=== PATIENT | male | born 1950 | race Caucasian/White ===

== ENCOUNTER 2016-03-23 06:26 | Day surgery (SDC) | payer MEDICARE ==
[2016-03-18 11:08] VITALS: BMI 41.0
[2016-03-23] MEDS ORDERED: SODIUM CHLORIDE 0.9% 1,000 ML IV ONE (07:04)
[2016-03-23] MEDS ORDERED: MIDAZOLAM 2 MG/2 ML VIAL IV ONE (07:51)
[2016-03-23] MEDS ORDERED: LIDOCAINE 2% INJ 20 MG/ML SQ ONE (07:55)
[2016-03-23] MEDS ORDERED: BIVALIRUDIN BOLUS 250 MG/50 ML IV ONE (07:59)
[2016-03-23] MEDS ORDERED: BIVALIRUDIN 250 MG in SODIUM CHLORIDE 0.9% 50 ML IV ONE (08:00)
[2016-03-23] MEDS ORDERED: NITROGLYCERIN 1000MCG/10ML SYRINGE INTRACORON ONE (08:12)
[2016-03-23] MEDS ORDERED: CLOPIDOGREL 75 MG TAB PO ONE (08:19)
[2016-03-23] MEDS ORDERED: IODIXANOL 320 MG/ML 100 ML INTRAARTER ONE (08:19)
[2016-03-23] MEDS ORDERED: NITROGLYCERIN SL TABS 0.4 MG TAB SUBLINGUAL PRN ×2 (08:27)
[2016-03-23] MEDS ORDERED: RX INFO: IV CONTRAST WAS GIVEN 1 EACH MISC MISCELLANE PRN (08:27)
[2016-03-23] MEDS ORDERED: ZOLPIDEM 5 MG TAB PO PRN (08:27)
[2016-03-23] MEDS ORDERED: MAG HYDROX/AL HYDROX/SIMETH 30 ML CUP PO PRN (08:27)
[2016-03-23] MEDS ORDERED: SODIUM CHLORIDE 0.9% 1,000 ML IV SCH (08:30)
[2016-03-23] MEDS: LISINOPRIL 20 MG TAB PO SCH (13:13)
[2016-03-23] MEDS: ASPIRIN 325 MG TAB PO SCH (13:13)
[2016-03-23] MEDS: ATENOLOL 25 MG TAB PO SCH (13:13)
[2016-03-23] MEDS: amLODIPine 5 MG TAB PO SCH (13:13)
--- NOTE | 2016-03-23 17:50 | PTCA ---
DATE OF SERVICE: 03/23/2016 PERFORMING PHYSICIAN: Lino Manzo M.D., social work associate. PROCEDURE PERFORMED: Successful stenting of the mid left circumflex using a 3.0 x 15 mm Xience CIRILO with good angiographic results. INDICATION: This is a pleasant 65-year-old gentleman who sees Dr. Gar as an outpatient who underwent a heart catheterization a few weeks ago for chest discomfort and an abnormal stress test and was found to have severe disease involving the RCA and left circumflex. The RCA was fixed at that time and he was brought today to undergo stenting of the left circumflex. APPROACH: Right common femoral artery. COMPLICATIONS: None. LEVEL OF SEDATION: Moderate. PROCEDURE DESCRIPTION: After obtaining informed consent, the patient was brought to the cardiac laboratory manager. The right common femoral artery was cannulated using micropuncture technique. Micropuncture wire passed easily, then I placed a 6 Telugu sheath in the right common femoral artery. Anticoagulation was initiated using Angiomax. After that I took an XB 3.5 guide and the left main was engaged. Left circumflex was wired using a Whisper wire. Subsequently I did PTCA ballooning using a 2.5 x 12 mm balloon which was inflated under 12 atmospheres for 20 seconds, and subsequently I deployed a 3.0 x 15 mm Xience CIRILO, where the stent was positioned under fluoroscopy guidance and it was deployed under 12 atmospheres for 20 seconds. The following angiogram showed good angiographic results. The procedure was completed without any complication. POST-PROCEDURE MANAGEMENT: 1. Dual antiplatelet therapy. 2. Risk factor modification. 3. Followup with the patient.
--- NOTE | 2016-03-23 18:00 | LTR ---
March 23, 2016 RE: Sánchez Smith Dear Dr. Qureshi: Mr. Sánchez Smith underwent successful stenting of the left circumflex with a good angiographic results. Thank you for allowing me to participate in his care. Sincerely, FIGUEROA VALLEJO MD
[2016-03-23] MEDS: ATORVASTATIN 80 MG TAB PO SCH ×2 (20:18→20:19)
[2016-03-24 06:40] LABS: Basophils % (A) 0 %; CH 31.9; CHCM 33.6; Eosinophils # (A) 0.4 k/uL (0-0.7); Eosinophils % (A) 6 %; HCT 39.4 % (39.0-53.0); HDW 2.31; HGB 12.9 gm/dL (13.0-17.5); Luc # (Auto) 0.16; Luc % (Auto) 3; Lymphocytes % (A) 16 %; MCH 31.3 pg (25.0-35.0); MCHC 32.8 g/dL (31.0-37.0); MCV 95.6 fL (80.0-100.0); Mean Platelet Volume 7.1; Monocytes # (A) 0.4 k/uL (0-1.0); Monocytes % (A) 7 %; Neutrophils # (A) 4.3 k/uL (1.3-7.7); Neutrophils % (A) 68 %; RBC 4.12 m/uL (4.30-5.90); RDW 12.2 % (11.5-15.5); WBC 6.3 k/uL (3.8-10.6); WBC (Perox) 6.65
[2016-03-24 06:54] LABS: Potassium 4.2 mmol/L (3.5-5.1)
[2016-03-24] MEDS ORDERED: PANTOPRAZOLE 40 MG TABLET PO SCH (07:30)
[2016-03-24 07:34] VITALS: BP 135/76; PULSE 59; RESP 17; TEMP 99
[2016-03-24] MEDS ORDERED: CLOPIDOGREL 75 MG TAB PO SCH (09:00)
[2016-03-24] MEDS: ATORVASTATIN 80 MG TAB PO SCH (09:31)
[2016-03-24] MEDS: ATENOLOL 25 MG TAB PO SCH (09:31)
[2016-03-24] MEDS: ASPIRIN 325 MG TAB PO SCH (09:31)
[2016-03-24] MEDS: amLODIPine 5 MG TAB PO SCH (09:31)
[2016-03-24] MEDS: LISINOPRIL 20 MG TAB PO SCH (09:31)
[2016-03-24] MEDS ORDERED: MULTIVITAMINS, THERA 1 EACH TAB PO SCH (12:00)
--- NOTE | 2016-03-24 22:30 | DS ---
DATE OF ADMISSION: 03/23/2016 DATE OF DISCHARGE: 03/24/2016 BRIEF HISTORY: This is a pleasant 65-year-old gentleman who sees Dr. Gar as an outpatient who was admitted to the hospital yesterday and underwent successful stenting of the mid left circumflex using the Xience CIRILO with a good angiographic results. On followup with the patient today, he is doing good and he denies having any chest pain or discomfort or difficulty in breathing. The right groin seems to be soft and nontender and without any bruises. The patient is going to be discharged home on dual antiplatelet therapy and he will follow up with Dr. Gar next week in the office.
== END 2016-03-24 10:33 | disposition home or self-care (01) ==
LOC: CATHCVL 06:26 → 6SEL 08:18 → CATHCVL 03-24 10:33
PROVIDERS: ATTEND Internal Medicine Interventional Cardiology
DX: I25.10 Atherosclerotic heart disease of native coronary artery without angina pectoris (principal); Z95.5 Presence of coronary angioplasty implant and graft; I12.9 Hypertensive chronic kidney disease with stage 1 through stage 4 chronic kidney disease, or unspecified chronic kidney disease; N18.9 Chronic kidney disease, unspecified; I25.2 Old myocardial infarction; E78.00 Pure hypercholesterolemia, unspecified; E78.5 Hyperlipidemia, unspecified; Z79.02 Long term (current) use of antithrombotics/antiplatelets; Z79.82 Long term (current) use of aspirin; Z79.899 Other long term (current) drug therapy; Z87.891 Personal history of nicotine dependence
CPT/HCPCS: 80048; 85025; C9600; C1769 ×3; C1725; C1887; C1894 ×2; C1874; J2001; J2250; Q9967; J0583

== ENCOUNTER 2016-09-27 06:55 | Day surgery (SDC) | payer MEDICARE ==
[~2016-09-27 06:55] MED LIST: ALPRAZolam 0.25 MG TAB PO PRN; ASPIRIN 325 MG TAB PO ONE; SODIUM CHLORIDE 0.9% 1,000 ML in EMPTY BAG 1 BAG IV ONE
[2016-09-27] MEDS ORDERED: SODIUM CHLORIDE 0.9% 1,000 ML IV SCH ×2 (07:00→13:15)
[2016-09-27] MEDS ORDERED: LIDOCAINE 2% INJ 20 MG/ML (20 ML MDV) ONE (08:47)
[2016-09-27] MEDS ORDERED: MIDAZOLAM 2 MG/2 ML VIAL ONE ×2 (08:54→11:44)
[2016-09-27] MEDS ORDERED: fentaNYL (PF) 50 MCG/ML 2 ML AMP ONE (08:54)
[2016-09-27] MEDS ORDERED: VERAPAMIL 2.5 MG/ML 2 ML AMP ONE (09:03)
[2016-09-27] MEDS: fentaNYL (PF) 50 MCG/ML 2 ML AMP IV ONE ×2 (09:05→11:17)
[2016-09-27] MEDS: MIDAZOLAM 2 MG/2 ML VIAL IVP ONE ×2 (09:05→10:10)
[2016-09-27] MEDS ORDERED: LIDOCAINE 2% INJ 20 MG/ML SQ ONE (09:09)
[2016-09-27] MEDS ORDERED: HEPARIN SODIUM 1,000 UN/ML (10ML VL) ONE (09:10)
[2016-09-27] MEDS ORDERED: HEPARIN SODIUM 1,000 UN/ML (10ML VL) IV ONE (09:15)
[2016-09-27] MEDS: VERAPAMIL SYRINGE (5 MG/10 ML) INTRAARTER ONE ×2 (09:15→12:53)
--- NOTE | 2016-09-27 09:52 | P.PCN ---
Date of Procedure: 09/27/16 Preoperative Diagnosis: Exertional shortness of breath and positive stress test Postoperative Diagnosis: In-stent stenosis involving the RCA. Critical lesion involving the OM branch of circumflex and intermediate disease involving the LAD with a total occlusion of the diagonal branch. Procedure(s) Performed: Left heart catheterization without left ventriculography. Implants: Indications for Procedure: Operative Findings: Description of Procedure: HISTORY: Mr. Woody is a 66-year-old gentleman with history of hypertension, hypercholesterolemia and also ischemic heart disease who had a stent placement of the RCA and also circumflex about 6 months ago. Patient had a nuclear stress test,because of ongoing symptoms of exertional shortness of breath. He was found to have positive findings with reversible ischemia involving the inferolateral segment and also in the mid anterior wall. Patient is advised to have a cardiac catheterization for definite diagnosis. CONSENT:I have discussed the risks, benefits and alternative therapies for the above-mentioned procedure and for both sedation/analgesia as well as necessary blood product administration, if indicated, as they pertain to this patient. The patient has indicated understanding and acceptance of the risks and procedures discussed. PROCEDURE: Patient was brought to the lab in a fasting state. Patient was given some IV sedation. The right wrist area is infiltrated with lidocaine and right radial artery was entered using Seldinger technique. A 6-Mohawk catheter was left in place and selective coronary arteriography was performed. Patient tolerated the procedure well. Patient is found to have in-stent stenosis of the right coronary artery and a significant lesion in the OM branch of the circumflex. He also has intermediate disease in the LAD. Patient is waiting to be evaluated by Dr. Swanson. Conscious Sedation: Versed one mg Fentanyl 50 gm Duration 20 to minutes HEMODYNAMICS: The aortic pressure is 120/73. Left ventricular end-diastolic pressure is about 8-10. There was no gradient across the aortic valve SELECTIVE CORONARY ARTERIOGRAPHY: LEFT MAIN: Normal length and patent THE LEFT ANTERIOR DESCENDING CORONARY ARTERY: . Good caliber vessel with diffuse disease involving the proximal and mid portions with areas of about 50-60% stenosis. There is a total occlusion of the diagonal at the ostium THE LEFT CIRCUMFLEX AND IS CORONARY ARTERY: . This is a good caliber vessel with patent stent in the proximal to mid circumflex. The OM branch of the circumflex has about 95% stenosis in the proximal portion. One of the 2 divisions of the circumflex also has 50-60% lesion in the distal portion THE RIGHT CORONARY ARTERY: . This is a relatively small caliber vessel but a dominant. It has about 60% in-stent stenosis. LEFT VENTRICULOGRAPHY: Not performed FINAL IMPRESSION: . Critical lesion involving the OM branch of the circumflex. Moderate to severe in-stent stenosis of the RCA. Intermediate disease involving the proximal mid LAD with a total occlusion of the 1 diagonal branch PLAN: Dr. Swanson is going to be evaluating the patient to see the stent placement of the OM branch and RCA is possible. If not, we may do FFR of the LAD to see if the LAD lesions or significant. If LAD lesions appear to be significant, patient could be considered for bypass surgery. PROGNOSIS: Guarded
[2016-09-27] MEDS ORDERED: BIVALIRUDIN BOLUS 250 MG/50 ML IV ONE (11:19)
[2016-09-27] MEDS ORDERED: BIVALIRUDIN 250 MG in SODIUM CHLORIDE 0.9% 35 ML IV ONE (11:19)
[2016-09-27] MEDS ORDERED: ADENOSINE 90 MG in SODIUM CHLORIDE 0.9% 60 ML IVP ONE (11:26)
[2016-09-27] MEDS ORDERED: MIDAZOLAM 2 MG/2 ML VIAL IV ONE (11:42)
[2016-09-27] MEDS ORDERED: BIVALIRUDIN 250 MG in SODIUM CHLORIDE 0.9% 50 ML IV ONE (12:20)
[2016-09-27] MEDS ORDERED: NITROGLYCERIN 1000MCG/10ML SYRINGE INTRACORON ONE (12:48)
[2016-09-27] MEDS ORDERED: CLOPIDOGREL 75 MG TAB ONE (12:52)
[2016-09-27] MEDS ORDERED: ONDANSETRON 4 MG/2 ML VIAL ONE (12:54)
[2016-09-27] MEDS ORDERED: CLOPIDOGREL 75 MG TAB PO ONE (12:54)
[2016-09-27] MEDS ORDERED: ONDANSETRON 4 MG/2 ML VIAL IVP ONE (12:55)
[2016-09-27] MEDS ORDERED: IODIXANOL 320 MG/ML 100 ML INTRAARTER ONE (12:56)
[2016-09-27] MEDS ORDERED: NITROGLYCERIN SL TABS 0.4 MG TAB SUBLINGUAL PRN ×2 (13:08→13:09)
[2016-09-27] MEDS ORDERED: ZOLPIDEM 5 MG TAB PO PRN (13:09)
[2016-09-27] MEDS ORDERED: RX INFO: IV CONTRAST WAS GIVEN 1 EACH MISC MISCELLANE PRN (13:09)
[2016-09-27] MEDS ORDERED: MAG HYDROX/AL HYDROX/SIMETH 30 ML CUP PO PRN (13:09)
[2016-09-27] MEDS ORDERED: ATROPINE SULFATE 0.1 MG/ML 10ML SYRINGE IV PRN (13:09)
[2016-09-27 15:15] VITALS: BMI 29.0
[2016-09-27] MEDS ORDERED: TAMSULOSIN 0.4 MG CAP.ER.24H PO SCH (21:00)
[2016-09-28 06:16] LABS: Basophils % (A) 0 %; CH 32.1; CHCM 33.5; Eosinophils # (A) 0.3 k/uL (0-0.7); Eosinophils % (A) 5 %; HCT 40.3 % (39.0-53.0); HGB 12.9 gm/dL (13.0-17.5); Luc # (Auto) 0.13; Luc % (Auto) 2; Lymphocytes # (A) 1.1 k/uL (1.0-4.8); Lymphocytes % (A) 14 %; MCH 30.9 pg (25.0-35.0); MCHC 32.1 g/dL (31.0-37.0); MCV 96.3 fL (80.0-100.0); Mean Platelet Volume 7.6; Monocytes # (A) 0.5 k/uL (0-1.0); Monocytes % (A) 6 %; Neutrophils # (A) 5.4 k/uL (1.3-7.7); Neutrophils % (A) 73 %; RBC 4.18 m/uL (4.30-5.90); RDW 13.5 % (11.5-15.5); WBC 7.5 k/uL (3.8-10.6); WBC (Perox) 7.81
[2016-09-28 06:24] LABS: Anion Gap 8 mmol/L; Blood Urea Nitrogen 19 mg/dL (9-20); Calcium 8.7 mg/dL (8.4-10.2); Carbon Dioxide 25 mmol/L (22-30); Chloride 107 mmol/L (98-107); Glucose 90 mg/dL (74-99); Non-African American GFR(MDRD) 54 (>60 ml/min/1.73 sqM); Potassium 4.7 mmol/L (3.5-5.1); Sodium 140 mmol/L (137-145)
[2016-09-28] MEDS ORDERED: PANTOPRAZOLE 40 MG TABLET PO SCH (07:30)
[2016-09-28 08:43] VITALS: RESP 17
[2016-09-28] MEDS ORDERED: ATENOLOL 25 MG TAB PO SCH (09:00)
[2016-09-28] MEDS ORDERED: ATORVASTATIN 80 MG TAB PO SCH (09:00)
[2016-09-28] MEDS ORDERED: LISINOPRIL 20 MG TAB PO SCH (09:00)
[2016-09-28] MEDS ORDERED: amLODIPine 5 MG TAB PO SCH (09:00)
[2016-09-28] MEDS ORDERED: CLOPIDOGREL 75 MG TAB PO SCH (09:00)
[2016-09-28] MEDS ORDERED: ASPIRIN 81 MG PO SCH (09:00)
[2016-09-28 09:38] VITALS: TEMP 97.2
--- NOTE | 2016-09-28 11:46 | PTCA ---
DATE OF SERVICE: 09/27/2016 PERFORMING PHYSICIAN: Lino Manzo MD, police patrol lieutenant. PROCEDURE PERFORMED: 1. Fractional flow reserve (FFR) of the LAD. 2. Successful stenting of the first obtuse marginal branch of the left circumflex using 2.75 x 12 mm Xience CIRILO with a good angiographic results with adjunctive use of GuideLiner for support. INDICATIONS: This is a pleasant 66-year-old gentleman who sees Dr. Gar as an outpatient who underwent in the past stenting of the RCA and left circumflex. He was experiencing chest discomfort and he underwent a heart catheterization by Dr. 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 He underwent an FFR of the LAD and that came in to be nonischemic and in view of that we decided to pursue with intervention on the left circumflex and subsequently the RCA. APPROACH: Right radial artery. COMPLICATIONS: None. LEVEL OF SEDATION: Moderate with sedation length of 96 minutes. PROCEDURE DESCRIPTION: After diagnostic heart catheterization was performed by Dr. Gar I decided to pursue with an FFR of the LAD. Anticoagulation was initiated using Angiomax. Subsequently, after zeroing the Doppler wire and equalizing between the Doppler wire and the guiding catheter, which was JL3.5 guiding catheter, we had an FFR per IV adenosine infusion and FFR came in to be 0.82, which is nonischemic. At that point, we decided not to intervene on the LAD and not to send the patient for open heart surgery. After that, I did wire the left circumflex using a whisper wire. I attempted advancing 2.0 x 12 mm balloon, but the balloon will not cross the lesion in the ostial first OM. At that point, I decided to wire the OM using a renate wire so I used a run-through wire with the whisper wire. I attempted advancing the balloon and I was unable. At that point, I did advance 1.5 mm balloon and I did multiple PTCA ballooning of the lesion in the first obtuse marginal branch. After that I was able to advance 2.0 x 12 mm balloon and I did also multiple PTCA ballooning. After that, I attempted advancing the stent with a back-up support of GuideLiner and I was unable. At that point, I decided to balloon the ostial of the first OM again using this time noncompliant balloon so I was able to get 2.75 x 12 mm NC balloon to the first obtuse marginal branch where the balloon was inflated multiple times under 16 atmospheres. After that I was able to advance a 2.75 x 12 mm Xience CIRILO where the stent was positioned under fluoroscopic guidance and deployed under 12 atmospheres for 20 seconds. The following angiogram showed good angiographic results without perforation and without dissection with a tiny pinch through left circumflex. The procedure was completed without any complication. POSTPROCEDURE MANAGEMENT: 1. Dual antiplatelet therapy. 2. Risk factor modification. 3. PCI of the RCA as an outpatient. ANAHY
[2016-09-28] MEDS ORDERED: MULTIVITAMINS, THERA 1 EACH TAB PO SCH (12:00)
--- NOTE | 2016-09-28 12:31 | P.PN ---
Subjective Principal diagnosis: Stenting of the circumflex This is a pleasant 66-year-old gentleman with history of hypertension , hyperlipidemia, ischemic heart disease with prior RCA stent, prior circumflex stent, who had a nuclear stress test because of ongoing symptoms of exertional shortness of breath. He was found to have positive findings was reversible ischemia in the inferior lateral region as well as mid anterior wall. Patient was advised to undergo cardiac catheterization for more definitive diagnosis. Cardiac catheterization revealed a critical lesion involving the OM branch of the circumflex, subsequently the patient underwent angioplasty and stenting of that vessel. He was seen and examined this morning, denies any chest pain or difficulty in breathing. He has been up ambulating without any difficulty. BUN 19, creatinine 1.3, platelet count 135. Objective - Vital Signs Vital signs: Vital Signs Temp 97.2 F L 09/28/16 08:00 Pulse 70 09/28/16 08:00 Resp 17 09/28/16 08:00 BP 136/88 09/28/16 08:00 Pulse Ox 96 09/28/16 08:00 Intake & Output 09/27/16 09/28/16 09/28/16 18:59 06:59 18:59 Intake Total 1015.3 770 540 Output Total 1400 1175 450 Balance -384.7 -405 90 Weight 97.069 kg 98.2 kg Intake: IV 715.3 Intake, IV Titration 350 Amount Sodium Chloride 0.9% 1, 350 000 ml @ 100 mls/hr IV . Q10H DESTINI Rx#:[id number] Oral 300 420 540 Output: Urine 1400 1175 450 Other: Voiding Method Toilet Toilet Toilet Urinal Urinal Urinal # Voids 1 1 1 - Exam PHYSICAL EXAMINATION: HEENT: Head is atraumatic, normocephalic. Pupils equal, round. Neck is supple. There is no elevated jugular venous pressure. HEART EXAMINATION: Heart S1, S2 normal. No murmur or gallop heard. CHEST EXAMINATION: Lungs are clear to auscultation and precussion. No chest wall tenderness is noted on palpation or with deep breathing. ABDOMEN: Soft, nontender. Bowel sounds are heard. No organomegaly noted. Right groin soft, no evidence of any hematoma. EXTREMITIES: 2+ peripheral pulses with no evidence of peripheral edema and no calf tenderness noted. NEUROLOGIC patient is awake, alert and oriented -3. . - Labs CBC & Chem 7: 09/28/16 05:41 09/28/16 05:41 Labs: Abnormal Lab Results - Last 24 Hours (Table) 09/28/16 09/28/16 Range/Units 05:41 05:41 RBC 4.18 L (4.30-5.90) m/uL Hgb 12.9 L (13.0-17.5) gm/dL Plt Count 135 L (150-450) k/uL Creatinine 1.33 H (0.66-1.25) mg/dL Assessment and Plan (1) Presence of stent in left circumflex coronary artery Status: Acute (2) HTN (hypertension) Status: Acute (3) CAD (coronary artery disease) Status: Acute (4) Positive cardiac stress test Status: Acute (5) Hyperlipemia Status: Acute Plan: Patient may be able to be discharged home today. We will make a follow-up appointment with Dr. Gar in the office in one week. He will be discharged home on aspirin 81 mg daily, Norvasc 5 mg daily, Tenormin 25 mg daily , Lipitor 80 mg daily, Plavix 75 mg daily, lisinopril 20 mg daily, Protonix 40 mg daily, sublingual nitroglycerin as needed for chest pain. DNP note has been reviewed, I agree with a documented findings and plan of care. Patient was seen and examined.
[2016-09-28 13:58] VITALS: BP 135/80; PULSE 60
== END 2016-09-28 15:27 | disposition home or self-care (01) ==
LOC: CATHCVL 06:55 → 6SEL 12:52 → CATHCVL 09-28 15:27
PROVIDERS: ATTEND Internal Medicine Cardiovascular Disease
DX: I25.118 Atherosclerotic heart disease of native coronary artery with other forms of angina pectoris (principal); I25.82 Chronic total occlusion of coronary artery; T82.855A Stenosis of coronary artery stent, initial encounter; R94.39 Abnormal result of other cardiovascular function study; E78.5 Hyperlipidemia, unspecified; I11.9 Hypertensive heart disease without heart failure; I25.9 Chronic ischemic heart disease, unspecified; E78.00 Pure hypercholesterolemia, unspecified; I25.2 Old myocardial infarction; N28.9 Disorder of kidney and ureter, unspecified; Z79.02 Long term (current) use of antithrombotics/antiplatelets; Z79.82 Long term (current) use of aspirin; Z79.899 Other long term (current) drug therapy; Z87.891 Personal history of nicotine dependence
CPT/HCPCS: 80048; 85025; 93458; 93571

== ENCOUNTER 2016-10-13 07:20 | Day surgery (SDC) | payer MEDICARE ==
[2016-10-08 09:28] VITALS: BMI 29.1
[~2016-10-13 07:20] MED LIST changes: +ALPRAZolam 0.5 MG TAB PO PRN; -ASPIRIN 325 MG TAB PO ONE; +ASPIRIN 325 MG TAB PO STA; +ATORVASTATIN 80 MG TAB PO STA; +NITROGLYCERIN SL TABS 0.4 MG TAB SUBLINGUAL PRN
[2016-10-13] MEDS ORDERED: LIDOCAINE 2% INJ 20 MG/ML (20 ML MDV) ONE (08:21)
[2016-10-13] MEDS ORDERED: diphenhydrAMINE 50 MG/ML 1 ML VIAL ONE (09:29)
[2016-10-13] MEDS ORDERED: MIDAZOLAM 2 MG/2 ML VIAL ONE (09:29)
[2016-10-13] MEDS ORDERED: VERAPAMIL 2.5 MG/ML 2 ML AMP ONE (09:36)
[2016-10-13] MEDS ORDERED: diphenhydrAMINE 50 MG/ML 1 ML VIAL IVP ONE (09:43)
[2016-10-13] MEDS ORDERED: MIDAZOLAM 2 MG/2 ML VIAL IVP ONE (09:43)
[2016-10-13] MEDS ORDERED: LIDOCAINE 2% INJ 20 MG/ML SQ ONE (09:44)
[2016-10-13] MEDS ORDERED: BIVALIRUDIN BOLUS 250 MG/50 ML IV ONE (09:45)
[2016-10-13] MEDS: VERAPAMIL SYRINGE (5 MG/10 ML) INTRAARTER ONE ×2 (09:45→10:49)
[2016-10-13] MEDS ORDERED: BIVALIRUDIN 250 MG in SODIUM CHLORIDE 0.9% 50 ML IV ONE ×2 (09:46→10:31)
[2016-10-13] MEDS ORDERED: niCARdipine 25 MG/10 ML VIAL ONE (09:51)
[2016-10-13] MEDS ORDERED: HYDROmorphone 2 MG/ML 1 ML SYRINGE ONE (10:01)
[2016-10-13] MEDS: HYDROmorphone 2 MG/ML 1 ML SYRINGE IVP ONE ×2 (10:03→10:45)
[2016-10-13] MEDS: NITROGLYCERIN 1000MCG/10ML SYRINGE INTRACORON ONE ×2 (10:06→10:45)
[2016-10-13] MEDS ORDERED: CLOPIDOGREL 75 MG TAB ONE (10:46)
[2016-10-13] MEDS ORDERED: CLOPIDOGREL 75 MG TAB PO ONE (10:48)
[2016-10-13] MEDS ORDERED: IODIXANOL 320 MG/ML 100 ML INTRAARTER ONE (10:50)
[2016-10-13] MEDS ORDERED: NITROGLYCERIN SL TABS 0.4 MG TAB SUBLINGUAL PRN ×2 (10:54→10:56)
[2016-10-13] MEDS ORDERED: RX INFO: IV CONTRAST WAS GIVEN 1 EACH MISC MISCELLANE PRN (10:56)
[2016-10-13] MEDS ORDERED: ATROPINE SULFATE 0.1 MG/ML 10ML SYRINGE IV PRN (10:56)
[2016-10-13] MEDS ORDERED: ZOLPIDEM 5 MG TAB PO PRN (10:56)
[2016-10-13] MEDS ORDERED: MAG HYDROX/AL HYDROX/SIMETH 30 ML CUP PO PRN (10:56)
[2016-10-13] MEDS ORDERED: SODIUM CHLORIDE 0.9% 1,000 ML IV SCH (11:00)
--- NOTE | 2016-10-13 19:53 | PTCA ---
DATE OF SERVICE: 10/13/16 PERFORMING PHYSICIAN: Lino Manzo M.D., hypo dipper. PROCEDURE PERFORMED: Successful stenting of the mid right coronary artery using 2.75 x 8 and 2.75 x 12 mm drug eluting stents with good angiographic results. Both stents were Promus Premier. INDICATIONS: This is a pleasant 66 -year-old gentleman who sees Dr. Gar as an outpatient who was experiencing chest discomfort and was admitted to the hospital a few weeks ago and underwent heart catheterization and was found to have severe two vessel coronary artery disease involving the left circumflex and RCA. He underwent successful stenting of the left circumflex and was brought today to undergo stenting of the RCA. APPROACH: Right radial artery. COMPLICATIONS: None. LEVEL OF SEDATION: Moderate. SEDATION LENGTH: 67 minutes. PROCEDURE DESCRIPTION: After obtaining informed consent, the patient was brought to the cardiac catheterization lab. The right radial artery was cannulated using micropuncture technique. The micropuncture wire passed easily. Then I placed a 6 Turkish sheath in the right radial artery. Subsequently, I gave the patient 2 mg of Verapamil IA. Anticoagulation was initiated using Angiomax. Subsequently I did engage the RCA using a JR4 guiding catheter. I wired the RCA using a Whisper wire. I did PTCA ballooning using two 5 x 15 mm balloon. I attempted advancing 2.75 x 2.75 mm stent but the stent will not cross the lesion. I was able to get the stent with adjunctive use of Godzilla support device. Initially I deployed 2.75 x 8 mm and then 2.75 x 12 mm stents. I was able to reduce the stenosis from about 90% to about 50%. POSTPROCEDURE MANAGEMENT: 1. Dual antiplatelet therapy. 2. Risk factor medications. 3. Follow-up with the patient. ANAHY
[2016-10-13] MEDS ORDERED: TAMSULOSIN 0.4 MG CAP.ER.24H PO SCH (21:00)
[2016-10-14 06:04] LABS: Basophils % (A) 0 %; CH 32.4; CHCM 33.8; Eosinophils # (A) 0.4 k/uL (0-0.7); Eosinophils % (A) 5 %; HCT 38.1 % (39.0-53.0); HDW 2.38; HGB 12.7 gm/dL (13.0-17.5); Luc % (Auto) 2; Lymphocytes # (A) 1.2 k/uL (1.0-4.8); Lymphocytes % (A) 17 %; MCH 32.1 pg (25.0-35.0); MCHC 33.4 g/dL (31.0-37.0); MCV 96.3 fL (80.0-100.0); Mean Platelet Volume 7.9; Monocytes # (A) 0.4 k/uL (0-1.0); Monocytes % (A) 6 %; Neutrophils # (A) 4.7 k/uL (1.3-7.7); Neutrophils % (A) 70 %; RBC 3.96 m/uL (4.30-5.90); RDW 13.4 % (11.5-15.5); WBC 6.8 k/uL (3.8-10.6); WBC (Perox) 7.14
[2016-10-14 06:16] LABS: Anion Gap 7 mmol/L; Blood Urea Nitrogen 16 mg/dL (9-20); Calcium 8.9 mg/dL (8.4-10.2); Carbon Dioxide 25 mmol/L (22-30); Chloride 108 mmol/L (98-107); Glucose 93 mg/dL (74-99); Non-African American GFR(MDRD) 55 (>60 ml/min/1.73 sqM); Potassium 4.6 mmol/L (3.5-5.1); Sodium 140 mmol/L (137-145)
[2016-10-14] MEDS ORDERED: PANTOPRAZOLE 40 MG TABLET PO SCH (07:30)
[2016-10-14] MEDS ORDERED: ATENOLOL 25 MG TAB PO SCH (09:00)
[2016-10-14] MEDS ORDERED: ASPIRIN 81 MG CHEW PO SCH (09:00)
[2016-10-14] MEDS ORDERED: CLOPIDOGREL 75 MG TAB PO SCH (09:00)
[2016-10-14] MEDS ORDERED: LISINOPRIL 20 MG TAB PO SCH (09:00)
[2016-10-14] MEDS ORDERED: ATORVASTATIN 80 MG TAB PO SCH (09:00)
[2016-10-14] MEDS ORDERED: amLODIPine 5 MG TAB PO SCH (09:00)
--- NOTE | 2016-10-14 09:04 | P.PN ---
Subjective Principal diagnosis: RCA stent This is a 66-year-old gentleman who recently underwent successful stenting of the first obtuse marginal branch of the circumflex on September 27. He was admitted to the hospital on this occasion and underwent successful stenting of the mid right coronary artery. Patient was seen and examined this morning denies any chest pain or difficulty in breathing. EKG was performed which showed normal sinus rhythm with no changes from post-PCI. Hemodynamically stable. Objective - Vital Signs Vital signs: Vital Signs Temp 97.5 F L 10/13/16 20:00 Pulse 54 L 10/14/16 04:00 Resp 16 10/14/16 04:00 BP 113/58 10/14/16 04:00 Pulse Ox 95 10/14/16 04:00 Intake & Output 10/13/16 10/14/16 10/14/16 18:59 06:59 18:59 Intake Total 1338 200 Balance 1338 200 Weight 97.522 kg 99.2 kg Intake: IV 418 200 Sodium Chloride 0.9% 1, 200 000 ml @ 100 mls/hr IV . Q10H DESTINI Rx#:[id number] Intake, IV Titration 200 Amount Sodium Chloride 0.9% 1, 200 000 ml In Empty Bag 1 bag @ 1 ML/KG/HR 97.52 mls/ hr IV .[id number] ONE Rx#: [id number] Oral 720 Other: # Voids 2 - Exam PHYSICAL EXAMINATION: HEENT: Head is atraumatic, normocephalic. Pupils equal, round. Neck is supple. There is no elevated jugular venous pressure. HEART EXAMINATION: Heart S1, S2 normal. No murmur or gallop heard. CHEST EXAMINATION: Lungs are clear to auscultation and precussion. No chest wall tenderness is noted on palpation or with deep breathing. ABDOMEN: Soft, nontender. Bowel sounds are heard. No organomegaly noted. Right radial site clean and dry, good distal pulse. EXTREMITIES: 2+ peripheral pulses with no evidence of peripheral edema and no calf tenderness noted. NEUROLOGIC patient is awake, alert and oriented -3. . - Labs CBC & Chem 7: 10/14/16 05:50 10/14/16 05:50 Labs: Abnormal Lab Results - Last 24 Hours (Table) 10/14/16 10/14/16 Range/Units 05:50 05:50 RBC 3.96 L (4.30-5.90) m/uL Hgb 12.7 L (13.0-17.5) gm/dL Hct 38.1 L (39.0-53.0) % Plt Count 126 L (150-450) k/uL Chloride 108 H (98-107) mmol/L Creatinine 1.30 H (0.66-1.25) mg/dL Assessment and Plan Plan: Assessment and plan #1 status post stent placement of the RCA. #2 recent stenting of the first obtuse marginal branch #3 hypertension #4 hyperlipidemia Plan Patient will be discharged home today. He'll have a follow-up appointment to see Dr. Gar in the office post discharge. Patient will be discharged home on Norvasc 5 mg daily, Ecotrin 81 mg daily, atenolol 25 mg daily, Lipitor 80 mg daily, Plavix 75 mg daily, lisinopril 20 mg daily, multivitamin daily, sublingual nitroglycerin as needed for chest pain. He has been provided prescriptions for all of the above medications and he has been educated regarding them as well. DNP note has been reviewed, I agree with a documented findings and plan of care. Patient was seen and examined.
[2016-10-14 10:17] VITALS: BP 135/74; PULSE 69; RESP 20; TEMP 98
[2016-10-14] MEDS ORDERED: MULTIVITAMINS, THERA 1 EACH TAB PO SCH (12:00)
== END 2016-10-14 11:25 | disposition home or self-care (01) ==
LOC: CATHCVL 07:20 → 6SEL 10:50 → CATHCVL 10-14 11:25
PROVIDERS: ATTEND Internal Medicine Interventional Cardiology
DX: I25.10 Atherosclerotic heart disease of native coronary artery without angina pectoris (principal); I10 Essential (primary) hypertension; Z87.891 Personal history of nicotine dependence; I25.2 Old myocardial infarction; E78.00 Pure hypercholesterolemia, unspecified; E78.5 Hyperlipidemia, unspecified; Z95.5 Presence of coronary angioplasty implant and graft; Z79.02 Long term (current) use of antithrombotics/antiplatelets; Z79.82 Long term (current) use of aspirin; Z79.899 Other long term (current) drug therapy
CPT/HCPCS: 80048; 85025; C9600; C1769 ×2; C1887 ×2; C1725 ×4; C1894; C1874; J2001; J2250; J1170; J1200; Q9967; J0583

== ENCOUNTER → 2018-05-11 | Outpatient (CLI) | payer MEDICARE ==
[2018-05-11 16:30] LABS: HCT 33.2 % (39.0-53.0); Hypochromasia Slight; MCH 29.7 pg (25.0-35.0); MCV 90.1 fL (80.0-100.0); Mean Platelet Volume 6.2; Platelet Count 208 k/uL (150-450); RBC 3.69 m/uL (4.30-5.90); RDW 13.9 % (11.5-15.5); WBC 12.2 k/uL (3.8-10.6)
[2018-05-11 23:07] LABS: Anion Gap 8.1 mmol/L (4.00-12.00); Calcium 8.9 mg/dL (8.7-10.3); Carbon Dioxide 26.9 mmol/L (21.6-31.8); Magnesium 1.8 mg/dL (1.5-2.4); Potassium 4.1 mmol/L (3.5-5.5); Uric Acid 6.3 mg/dL (3.7-8.7)
[2018-05-11 23:08] LABS: Iron Saturation 6.87 (15.00-50.00)
[2018-05-11 23:29] LABS: Parathyroid Hormone Intact 57.7 pg/mL (14.0-72.0)
[2018-05-12 01:41] LABS: Hemoglobin A1C 6.1 % (4.0-6.0)
== END ==
LOC: LABWHC1 15:18
PROVIDERS: ATTEND Family Medicine
DX: D64.9 Anemia, unspecified (principal); R73.03 Prediabetes; R94.4 Abnormal results of kidney function studies
CPT/HCPCS: 36415; 80048; 82728; 83036; 83540; 83550; 83735; 83970; 84550; 85027

== ENCOUNTER → 2018-05-11 | Outpatient (CLI) | payer MEDICARE ==
--- NOTE | 2018-05-11 15:26 | US ---
EXAMINATION TYPE: US venous doppler duplex LE BI DATE OF EXAM: 05/11/2018 3:08 PM COMPARISON: NONE CLINICAL HISTORY: R60.0 Localized edema. SIDE PERFORMED: Bilateral TECHNIQUE: The lower extremity deep venous system is examined utilizing real time linear array sonog thompson with graded compression, doppler sonography and color-flow sonography. VESSELS IMAGED: External Iliac Vein (EIV) Common Femoral Vein Deep Femoral Vein Greater Saphenous Vein * Femoral Vein Popliteal Vein Small Saphenous Vein * Proximal Calf Veins (* superficial vessels) Right Leg: Negative for DVT Left Leg: Negative for DVT Grayscale, color doppler, spectral doppler imaging performed of the deep veins of the bilateral lower extremities. There is normal flow, compressibility, vascular waveforms. IMPRESSION: No ultrasound evidence for acute DVT in either lower extremity.
== END ==
LOC: RADUSWWP 14:39
PROVIDERS: ATTEND Physician Assistant
DX: R60.0 Localized edema (principal)
CPT/HCPCS: 93970

== ENCOUNTER → 2018-05-13 | Outpatient (CLI) | payer MEDICARE ==
[2018-05-13 13:25] LABS: Creatinine 24 Hour,Urine 1727.7 mg/24hr (1000.0-2000.0)
[2018-05-13 16:27] LABS: Total Volume 24 Hour,Urine 2725 mL
[2018-05-13 17:32] LABS: Total Protein 24 Hour,Urine 117.2 mg/24Hr
== END | disposition home or self-care (01) ==
LOC: LABWHC1 10:22
PROVIDERS: ATTEND Family Medicine
DX: R94.4 Abnormal results of kidney function studies (principal)
CPT/HCPCS: 36415; 81050; 82575; 84156

== ENCOUNTER 2018-07-10 11:03 | Emergency (ER) | payer MEDICARE ==
[2018-07-10 11:18] VITALS: TEMP 98.5
[2018-07-10] MEDS ORDERED: SODIUM CHLORIDE 0.9% 1,000 ML IV STA (11:54)
[2018-07-10] MEDS ORDERED: SODIUM CHLORIDE 0.9% 500 ML 500 ML IV STA (11:54)
[2018-07-10 12:22] LABS: Basophils % (A) 0 %; Eosinophils # (A) 0.3 k/uL (0-0.7); Eosinophils % (A) 3 %; HCT 35.1 % (39.0-53.0); HGB 11.1 gm/dL (13.0-17.5); Lymphocytes # (A) 0.4 k/uL (1.0-4.8); Lymphocytes % (A) 5 %; MCH 28.4 pg (25.0-35.0); MCHC 31.7 g/dL (31.0-37.0); MCV 89.6 fL (80.0-100.0); Mean Platelet Volume 7.1; Monocytes # (A) 0.5 k/uL (0-1.0); Monocytes % (A) 6 %; Neutrophils # (A) 8.1 k/uL (1.3-7.7); Neutrophils % (A) 85 %; Platelet Count 136 k/uL (150-450); RBC 3.91 m/uL (4.30-5.90); RDW 14.3 % (11.5-15.5); WBC 9.5 k/uL (3.8-10.6)
[2018-07-10 12:29] LABS: Partial Thromboplastin Time 23.5 sec (22.0-30.0); Prothrombin Time 10.3 sec (9.0-12.0)
[2018-07-10 12:30] LABS: Albumin 3.5 g/dL (3.5-5.0); Calcium 8.9 mg/dL (8.4-10.2); Magnesium 1.7 mg/dL (1.6-2.3); Potassium 4.4 mmol/L (3.5-5.1); Total Bilirubin 0.8 mg/dL (0.2-1.3); Total Protein 5.9 g/dL (6.3-8.2)
--- NOTE | 2018-07-10 12:30 | ED ---
Dizziness HPI - General Chief Complaint: Syncope Stated Complaint: Syncope Time Seen by Provider: 07/10/18 11:25 Source: patient, family, EMS, RN notes reviewed Mode of arrival: EMS Limitations: no limitations - History of Present Illness Initial Comments: This is a 68-year-old male who is currently being evaluated for prostatism and elevated PSA who was at his urologist's office today. We started feeling nauseated. He went to the bathroom developed sweats and dizziness. He was let down to the floor. He states he did not ask he passed out. No focal weakness no tunnel vision no headache no other symptoms reportable. He states he feels back to normal at this time. He has had previous episodes of this. He denies any palpitations or fast heart rate. MD Complaint: dizziness, lightheadedness, near syncope - Related Data Home Medications Medication Instructions Recorded Confirmed Atenolol [Tenormin] 25 mg PO DAILY 09/29/13 07/10/18 Lisinopril [Zestril] 20 mg PO DAILY 09/29/13 07/10/18 Multivitamin [Men's Multi-Vitamin] 1 tab PO DAILY 09/29/13 07/10/18 amLODIPine [Norvasc] 5 mg PO DAILY 09/29/13 07/10/18 Atorvastatin [Lipitor] 80 mg PO HS 02/19/16 07/10/18 Nitroglycerin Sl Tabs [Nitrostat] 0.4 mg SUBLINGUAL Q5M PRN 02/19/16 07/10/18 Aspirin [Adult Low Dose Aspirin EC] 81 mg PO DAILY 09/21/16 07/10/18 Tamsulosin HCl [Flomax] 0.4 mg PO HS 09/21/16 07/10/18 Isosorbide Mononitrate ER [Imdur] 30 mg PO DAILY 07/10/18 07/10/18 Omeprazole 20 mg PO DAILY 07/10/18 07/10/18 Allergies Allergy/AdvReac Type Severity Reaction Status Date / Time No Known Allergies Allergy Verified 07/10/18 11:33 Review of Systems ROS Statement: Those systems with pertinent positive or pertinent negative responses have been documented in the HPI. ROS Other: All systems not noted in ROS Statement are negative. 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 Cath with stent placement x5 Past Anesthesia/Blood Transfusion Reactions: No Reported Reaction Date of Last Stent Placement:: 09-27-16 Past Psychological History: No Psychological Hx Reported Smoking Status: Former smoker Past Alcohol Use History: Occasional Past Drug Use History: None Reported - Past Family History Father Family Medical History: Cancer, Diabetes Mellitus Mother Family Medical History: Congestive Heart Failure (CHF) General Exam - General Exam Comments Initial Comments: This is a well-developed well-nourished awake alert oriented 3 male Limitations: no limitations General appearance: alert, in no apparent distress Head exam: Present: atraumatic, normocephalic, normal inspection Eye exam: Present: normal appearance, PERRL, EOMI. Absent: scleral icterus, conjunctival injection, periorbital swelling ENT exam: Present: mucous membranes dry Neck exam: Present: normal inspection, full ROM, other (No stridor JVD or bruits). Absent: tenderness, meningismus, lymphadenopathy Respiratory exam: Present: normal lung sounds bilaterally. Absent: respiratory distress, wheezes, rales, rhonchi, stridor Cardiovascular Exam: Present: regular rate, normal rhythm, normal heart sounds. Absent: systolic murmur, diastolic murmur, rubs, gallop, clicks GI/Abdominal exam: Present: soft, normal bowel sounds. Absent: distended, t enderness, guarding, rebound, rigid Extremities exam: Present: normal inspection, full ROM, normal capillary refill. Absent: tenderness, pedal edema, joint swelling, calf tenderness Back exam: Present: normal inspection Neurological exam: Present: alert, oriented X3, CN II-XII intact Psychiatric exam: Present: normal affect, normal mood Skin exam: Present: warm, dry, intact, normal color. Absent: rash Course Vital Signs 07/10/18 07/10/18 11:15 13:03 Temperature 98.5 F Pulse Rate 60 59 L Respiratory 16 16 Rate Blood Pressure 134/66 134/74 O2 Sat by Pulse 98 96 Oximetry EKG Findings - EKG Results: EKG: interpreted by JAVID, sinus rhythm (Sinus rhythm a 6162 QRS duration 116 QT since QTC of incomplete right bundle-branch block no obvious acute changes) Medical Decision Making - Medical Decision Making Patient did receive IV hydration and felt much improved. He was able amulet without any symptoms or difficulty. He will be discharged he was encouraged to increase his oral fluid consumption. He will follow-up with his doctor - Lab Data Result diagrams: 07/10/18 11:40 07/10/18 11:40 Lab Results 07/10/18 07/10/18 07/10/18 Range/Units 11:40 11:40 11:40 WBC 9.5 (3.8-10.6) k/uL RBC 3.91 L (4.30-5.90) m/uL Hgb 11.1 L (13.0-17.5) gm/dL Hct 35.1 L (39.0-53.0) % MCV 89.6 (80.0-100.0) fL MCH 28.4 (25.0-35.0) pg MCHC 31.7 (31.0-37.0) g/dL RDW 14.3 (11.5-15.5) % Plt Count 136 L (150-450) k/uL Neutrophils % 85 % Lymphocytes % 5 % Monocytes % 6 % Eosinophils % 3 % Basophils % 0 % Neutrophils # 8.1 H (1.3-7.7) k/uL Lymphocytes # 0.4 L (1.0-4.8) k/uL Monocytes # 0.5 (0-1.0) k/uL Eosinophils # 0.3 (0-0.7) k/uL Basophils # 0.0 (0-0.2) k/uL PT 10.3 (9.0-12.0) sec INR 1.0 (<1.2) APTT 23.5 (22.0-30.0) sec Sodium 137 (137-145) mmol/L Potassium 4.4 (3.5-5.1) mmol/L Chloride 105 (98-107) mmol/L Carbon Dioxide 27 (22-30) mmol/L Anion Gap 5 mmol/L BUN 16 (9-20) mg/dL Creatinine 1.56 H (0.66-1.25) mg/dL Est GFR (CKD-EPI)AfAm 52 (>60 ml/min/1.73 sqM) Est GFR (CKD-EPI)NonAf 45 (>60 ml/min/1.73 sqM) Glucose 104 H (74-99) mg/dL Calcium 8.9 (8.4-10.2) mg/dL Magnesium 1.7 (1.6-2.3) mg/dL Total Bilirubin 0.8 (0.2-1.3) mg/dL AST 19 (17-59) U/L ALT 18 L (21-72) U/L Alkaline Phosphatase 80 (38-126) U/L Creatine Kinase 80 (55-170) U/L Troponin I (0.000-0.034) ng/mL Total Protein 5.9 L (6.3-8.2) g/dL Albumin 3.5 (3.5-5.0) g/dL 07/10/18 Range/Units 11:40 WBC (3.8-10.6) k/uL RBC (4.30-5.90) m/uL Hgb (13.0-17.5) gm/dL Hct (39.0-53.0) % MCV (80.0-100.0) fL MCH (25.0-35.0) pg MCHC (31.0-37.0) g/dL RDW (11.5-15.5) % Plt Count (150-450) k/uL Neutrophils % % Lymphocytes % % Monocytes % % Eosinophils % % Basophils % % Neutrophils # (1.3-7.7) k/uL Lymphocytes # (1.0-4.8) k/uL Monocytes # (0-1.0) k/uL Eosinophils # (0-0.7) k/uL Basophils # (0-0.2) k/uL PT (9.0-12.0) sec INR (<1.2) APTT (22.0-30.0) sec Sodium (137-145) mmol/L Potassium (3.5-5.1) mmol/L Chloride (98-107) mmol/L Carbon Dioxide (22-30) mmol/L Anion Gap mmol/L BUN (9-20) mg/dL Creatinine (0.66-1.25) mg/dL Est GFR (CKD-EPI)AfAm (>60 ml/min/1.73 sqM) Est GFR (CKD-EPI)NonAf (>60 ml/min/1.73 sqM) Glucose (74-99) mg/dL Calcium (8.4-10.2) mg/dL Magnesium (1.6-2.3) mg/dL Total Bilirubin (0.2-1.3) mg/dL AST (17-59) U/L ALT (21-72) U/L Alkaline Phosphatase (38-126) U/L Creatine Kinase (55-170) U/L Troponin I <0.012 (0.000-0.034) ng/mL Total Protein (6.3-8.2) g/dL Albumin (3.5-5.0) g/dL - Radiology Data Radiology results: report reviewed (I did review the imaging and report no acute findings), image reviewed Disposition Clinical Impression: Dehydration, Near syncope, Vasovagal episode Disposition: HOME SELF-CARE Condition: Good Instructions (If sedation given, give patient instructions): Near Syncope (ED), Dehydration (ED) Is patient prescribed a controlled substance at d/c from ED?: No Referrals: Reji Qureshi DO [Primary Care Provider] - 1-2 days
--- NOTE | 2018-07-10 12:36 | XR ---
EXAMINATION TYPE: XR chest 2V DATE OF EXAM: 07/10/2018 COMPARISON: 09/29/2013 HISTORY: 68-year-old male with syncope TECHNIQUE: PA and lateral views FINDINGS: The cardiomediastinal silhouette, aorta, and pulmonary vasculature are within normal limits. Lungs an d pleural spaces are clear. IMPRESSION: No acute cardiopulmonary process.
[2018-07-10 14:15] VITALS: BP 127/79; PULSE 64; RESP 18
== END 2018-07-10 14:27 | disposition home or self-care (01) ==
LOC: EC 11:03
DX: E86.0 Dehydration (principal); R55 Syncope and collapse; I25.10 Atherosclerotic heart disease of native coronary artery without angina pectoris; I10 Essential (primary) hypertension; E78.5 Hyperlipidemia, unspecified; K21.9 Gastro-esophageal reflux disease without esophagitis; I25.2 Old myocardial infarction; Z79.82 Long term (current) use of aspirin; Z79.899 Other long term (current) drug therapy; Z87.891 Personal history of nicotine dependence; Z95.5 Presence of coronary angioplasty implant and graft
CPT/HCPCS: 36415; 71046; 80053; 82550; 83735; 84484; 85025; 85610; 85730; 93005; 96360; 99285

== ENCOUNTER → 2018-07-11 | Outpatient (CLI) | payer MEDICARE ==
--- NOTE | 2018-07-11 17:06 | CT ---
EXAMINATION TYPE: CT abdomen w con DATE OF EXAM: 07/11/2018 COMPARISON: 01/24/2011 HISTORY: 68-year-old male Renal cyst. TECHNIQUE: Contiguous axial scanning of the abdomen following administration of 80 ml Isovue 300 IV c ontrast. Delayed images through the kidneys and coronal/sagittal reconstructions performed. CT DLP: 1209 mGycm Automated exposure control for dose reduction was used. FINDINGS: Heart normal size without pericardial effusion. Dense coronary vessel calcifications are present. Veronica g bases clear without pleural effusion. Small hiatal hernia. No focal liver lesion or biliary ductal dilatation. Portal venous system is patent Adrenal glands, spleen, and pancreas appear within normal limits. Lobulated centrally located cyst in the midpole of the right kidney measures 6.6 cm, increased in siz e from 2010 where it measured 4.6 cm. An additional cortical 2.7 cm cyst is also increased from 1.5 c m. There is either a very large cystic lesion versus severe hydronephrosis involving the left kidney. Th e coronal series suggests that there is hydronephrosis with severe thinning of the renal parenchyma. The dilated/cystic structure measures up to 22.4 cm AP by 22.9 mm craniocaudal by 13.9 cm wide (versu s 17.7 x 16.7 x 9.9 cm, previously). No excreting contrast is identified from the left kidney. Mild to moderate atelectatic calcifications within the abdominal aorta and iliac arteries. There is f usiform aneurysm infrarenal abdominal aorta at 3.1 cm versus 2.6 cm, previously and distal ectasia 2. 6 cm versus 2.3 cm, previously. Questionable circumferential long segment wall thickening of the distal ileum to the level of the TI. No mesenteric or retroperitoneal lymphadenopathy. Moderate stool burden. Sigmoid diverticulosis. Bones: Degenerative changes throughout the visualized spine with grade 1 anterolisthesis at L5-S1 and grade 1 retrolisthesis at L4-L5. IMPRESSION: 1. VERY LARGE CYSTIC STRUCTURE REPLACING THE LEFT KIDNEY CAUSING SEVERE PARENCHYMAL THINNING. THIS ST RUCTURE HAS ENLARGED FROM NEARLY 18 CM BACK IN 2010 NOW TO NEARLY 23 CM. THE CORONAL SERIES SUGGESTS THAT THIS MAY REPRESENT SEVERE HYDRONEPHROSIS WITH A DILATED COLLECTING SYSTEM WHICH RAISES POSSIBILI TY OF CHRONIC UPJ OBSTRUCTION. GIVEN THE SIZE AND RESULTANT MASS EFFECT ONTO INTRA-ABDOMINAL STRUCTUR ES, CONSIDER SURGICAL CONSULTATION. 2. ADDITIONAL CYSTS WITHIN THE RIGHT KIDNEY SHOW SLIGHT ENLARGEMENT FROM 2010 NOW MEASURING UP TO 6.6 CM. 3. THERE SEEMS TO BE CIRCUMFERENTIAL LONG SEGMENT WALL THICKENING OF THE DISTAL ILEUM TO THE LEVEL OF THE TI. CORRELATE FOR INFECTIOUS OR INFLAMMATORY TERMINAL ILEITIS. 4. INFRARENAL AAA AT 3.1 CM VERSUS 2.6 CM IN 2011. 5. SMALL HIATAL HERNIA. SIGMOID DIVERTICULOSIS.
== END | disposition home or self-care (01) ==
LOC: RADCTMAIN 15:25
PROVIDERS: ATTEND Family Medicine
DX: N28.1 Cyst of kidney, acquired (principal); K44.9 Diaphragmatic hernia without obstruction or gangrene; K57.30 Diverticulosis of large intestine without perforation or abscess without bleeding
CPT/HCPCS: 82565; 84520; 74160; 36415; Q9967

== ENCOUNTER → 2018-10-20 | Outpatient (CLI) | payer MEDICARE ==
[2018-10-20 08:21] LABS: Appearance,Urine Clear (Clear); Bilirubin,Urine Negative (Negative); Blood,Urine Negative (Negative); Color,Urine Yellow; Glucose,Urine (UA) Negative (Negative); Ketones,Urine Negative (Negative); Leukocyte Esterase,Urine Negative (Negative); Nitrite,Urine Negative (Negative); Protein,Urine Negative (Negative); Specific Gravity,Urine 1.013 (1.001-1.035); Urobilinogen,Urine <2.0 mg/dL (<2.0)
[2018-10-20 08:23] LABS: HCT 39.8 % (39.0-53.0); MCH 29.7 pg (25.0-35.0); MCHC 32.7 g/dL (31.0-37.0); MCV 90.6 fL (80.0-100.0); Mean Platelet Volume 6.6; Platelet Count 165 k/uL (150-450); RBC 4.39 m/uL (4.30-5.90); RDW 13.6 % (11.5-15.5); WBC 6.9 k/uL (3.8-10.6)
[2018-10-20 17:16] LABS: Vitamin D 25 Hydroxy 32.7 ng/mL (30.0-100.0)
[2018-10-20 17:17] LABS: Ferritin 39.5 ng/mL (22.0-322.0)
[2018-10-20 17:29] LABS: African American GFR (CKD) 43.5 (60.0-200.0); Albumin/Globulin Ratio 2.35 (1.60-3.17); Anion Gap 8.6 mmol/L (4.00-12.00); BUN/Creat Ratio 14.44 Ratio (12.00-20.00); Carbon Dioxide 25.4 mmol/L (21.6-31.8); Globulin 1.7 g/dL (1.6-3.3); Magnesium 1.8 mg/dL (1.5-2.4); Non-African American GFR(CKD) 37.6 (60.0-200.0); Phosphorus 3.6 mg/dL (2.4-5.1); Potassium 4.9 mmol/L (3.5-5.5); Total Bilirubin 0.7 mg/dL (0.3-1.2); Total Protein 5.7 g/dL (6.2-8.2); Uric Acid 7.1 mg/dL (3.7-8.7)
[2018-10-20 18:21] LABS: Iron Saturation 10.87 (15.00-50.00)
== END | disposition home or self-care (01) ==
LOC: LABWHC1 07:27
PROVIDERS: ATTEND Internal Medicine
DX: D64.9 Anemia, unspecified (principal); N18.3 Chronic kidney disease, stage 3 (moderate); N39.0 Urinary tract infection, site not specified; N25.81 Secondary hyperparathyroidism of renal origin; E55.9 Vitamin D deficiency, unspecified; M10.9 Gout, unspecified; C61 Malignant neoplasm of prostate
CPT/HCPCS: 36415; 80053; 81003; 82306; 82728; 83540; 83550; 83735; 83970; 84100; 84153; 84550; 85027

== ENCOUNTER → 2019-01-24 | Outpatient (CLI) | payer MEDICARE | END | disposition home or self-care (01) | LOC: LABWHC1 08:29 | PROVIDERS: ATTEND Urology | DX: C61 Malignant neoplasm of prostate (principal) | CPT/HCPCS: 36415; 84153 ==

== ENCOUNTER → 2019-03-21 | Outpatient (CLI) | payer MEDICARE ==
[2019-03-21 08:36] LABS: HCT 36.7 % (39.0-53.0); HGB 11.8 gm/dL (13.0-17.5); MCH 29.3 pg (25.0-35.0); MCHC 32.1 g/dL (31.0-37.0); MCV 91.2 fL (80.0-100.0); Mean Platelet Volume 7.6; Platelet Count 147 k/uL (150-450); RBC 4.03 m/uL (4.30-5.90); RDW 13.1 % (11.5-15.5); WBC 5.5 k/uL (3.8-10.6)
[2019-03-21 08:43] LABS: Appearance,Urine Clear (Clear); Bilirubin,Urine Negative (Negative); Blood,Urine Negative (Negative); Color,Urine Yellow; Glucose,Urine (UA) Negative (Negative); Ketones,Urine Negative (Negative); Leukocyte Esterase,Urine Negative (Negative); Nitrite,Urine Negative (Negative); PH, Urine 5.5 (5.0-8.0); Protein,Urine Negative (Negative); Urobilinogen,Urine <2.0 mg/dL (<2.0)
[2019-03-21 16:32] LABS: Ferritin 89.3 ng/mL (22.0-322.0)
[2019-03-21 16:43] LABS: % Iron Saturation 8.66 (15.00-50.00); African American GFR (CKD) 43.5 (60.0-200.0); Albumin 3.7 g/dL (3.80-4.90); Albumin/Globulin Ratio 2.18 (1.60-3.17); Anion Gap 5.7 mmol/L (4.00-12.00); BUN/Creat Ratio 13.33 Ratio (12.00-20.00); Calcium 8.6 mg/dL (8.7-10.3); Carbon Dioxide 27.3 mmol/L (21.6-31.8); Globulin 1.7 g/dL (1.6-3.3); Magnesium 1.7 mg/dL (1.5-2.4); Non-African American GFR(CKD) 37.6 (60.0-200.0); Phosphorus 3.1 mg/dL (2.4-5.1); Potassium 4.2 mmol/L (3.5-5.5); Total Bilirubin 0.8 mg/dL (0.3-1.2); Total Protein 5.4 g/dL (6.2-8.2); Uric Acid 6.7 mg/dL (3.7-8.7)
== END | disposition home or self-care (01) ==
LOC: LABWHC1 08:08
PROVIDERS: ATTEND Internal Medicine
DX: N25.81 Secondary hyperparathyroidism of renal origin (principal); N18.3 Chronic kidney disease, stage 3 (moderate); D63.1 Anemia in chronic kidney disease; N39.0 Urinary tract infection, site not specified; E55.9 Vitamin D deficiency, unspecified; M10.9 Gout, unspecified
CPT/HCPCS: 36415; 80053; 81003; 82306; 82728; 83540; 83550; 83735; 83970; 84100; 84550; 85027

== ENCOUNTER → 2019-12-10 | Outpatient (CLI) | payer MEDICARE ==
--- NOTE | 2019-12-10 11:10 | CT ---
EXAMINATION TYPE: CT abdomen wo con DATE OF EXAM: 12/10/2019 COMPARISON: 07/11/2018 HISTORY: Follow up renal cyst CT DLP: 537 mGycm Automated exposure control for dose reduction was used. TECHNIQUE: Helical acquisition of images was performed from the lung bases through the top of iliac crest to include entire abdomen. CONTRAST: Performed without Oral Contrast and without IV contrast. FINDINGS: Heart normal size without pericardial effusion. Dense coronary vessel calcifications are present. Veronica g bases clear without pleural effusion. Small hiatal hernia. No focal liver lesion or biliary ductal dilatation. Adrenal glands, spleen, and pancreas appear within normal limits. Lobulated centrally located cyst in the midpole of the right kidney measures 6.6 cm, increased stable an additional cortical 2.7 cm cyst is still There is either a very large cystic lesion versus severe hydronephrosis involving the left kidney. Th e coronal series suggests that there is hydronephrosis with severe thinning versus 17.7 x 16.7 x 9.9 cm cystic lesion, replacement of the renal parenchyma. The dilated/cystic structure measures up to 22 .4 cm AP by 22.9 mm craniocaudal by 13.9 cm wide. mild to moderate atelectatic calcifications within the abdominal aorta and iliac arteries. There is fusiform aneurysm infrarenal abdominal aorta at 3.1 cm versus 2.6 cm, previously and distal ectasia 2.6 cm versus 2.3 cm, previously. Questionable circumferential long segment wall thickening o f the distal ileum to the level of the TI. No mesenteric or retroperitoneal lymphadenopathy. Moderate stool burden. Sigmoid diverticulosis. Bone s: Degenerative changes throughout the visualized spine with grade 1 anterolisthesis at L5-S1 and gra de 1 retrolisthesis at L4-L5. IMPRESSION: 1. VERY LARGE CYSTIC STRUCTURE REPLACING THE LEFT KIDNEY CAUSING SEVERE PARENCHYMAL THINNING. THIS ST RUCTURE SIMILAR TO THE PRIOR EXAM AND MEASURING NEARLY 23 CM. Differential diagnosis continues to inc lude marked UPJ obstruction versus large renal cyst. 2. ADDITIONAL CYSTS WITHIN THE RIGHT KIDNEY STABLE. 3. INFRARENAL AAA AT 3.1 CM STABLE.
== END | disposition home or self-care (01) ==
LOC: RADCTMAIN 10:23
PROVIDERS: ATTEND Urology
DX: N28.1 Cyst of kidney, acquired (principal); I71.4 Abdominal aortic aneurysm, without rupture; N28.89 Other specified disorders of kidney and ureter
CPT/HCPCS: 74150

== ENCOUNTER → 2020-01-30 | Outpatient (CLI) | payer MEDICARE | END | disposition home or self-care (01) | LOC: LABWHC1 09:04 | PROVIDERS: ATTEND Urology | DX: R97.20 Elevated prostate specific antigen [PSA] (principal) | CPT/HCPCS: 36415; 84153 ==

== ENCOUNTER → 2021-09-16 | Outpatient (CLI) | payer MEDICARE ==
--- NOTE | 2021-09-16 13:14 | US ---
EXAMINATION TYPE: US kidneys/renal and bladder DATE OF EXAM: 09/16/2021 COMPARISON: CT CLINICAL HISTORY: N18.32 CHRONIC KIDNEY DISEASE, STAGE 3B. CKD. Patient states he has a large cyst on the left kidney. EXAM MEASUREMENTS: Right Kidney: 13.4 x 7.1 x 7.6 cm Left Kidney: Unable to visualize. Right Kidney: Appears enlarged. Anechoic area seen upper pole: 2.7 x 3.0 x 2.9 cm. Septated anechoi c area versus hydro at mid: 5.3 x 5.9 x 6.2 cm. Left Kidney: Unable to visualize. Large septated anechoic area seen in the LUQ-LLQ: 23.5 x 24.6 x 11. 3 cm. Bladder: Anechoic. Prostate appears prominent with possibly irregular peripheral border: 7.7 x 6.6 x 4.5 cm. Bilateral Jets seen: No *Hyperechoic area seen within the spleen incidentally: 0.3 x 0.4 x 0.2 cm. IMPRESSION: 1. Probable right-sided parapelvic cyst. 2. Limited visualization of the left kidney. Severe hydronephrosis difficult to exclude. CT correlati on advised.
== END | disposition home or self-care (01) ==
LOC: RADUSWWP 12:08
PROVIDERS: ATTEND Internal Medicine
DX: N18.32 Chronic kidney disease, stage 3b (principal)
CPT/HCPCS: 76770

== ENCOUNTER → 2022-08-02 | Outpatient (CLI) | payer MEDICARE ==
--- NOTE | 2022-08-02 12:17 | MR ---
EXAMINATION TYPE: MR Prostate wo/w con DATE OF EXAM: 08/02/2022 COMPARISON: None. 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 Left lateral apex prostate adenocarcino ma [place] grade 3+3 = 6, approximate 2 mm of tissue, approximate 33% tissue volume. TECHNIQUE: Examination was performed using a 3T MRI without an endorectal coil. Multiparametric imaging was perf ormed with T2 mutliplanar sequences, axial diffusion weighted imaging and dynamic contrast enhanced i maging, utilizing 9.5 mL intravenous Gadavist gadolinium contrast. FINDINGS: PROSTATE VOLUME: 7.2 cm SI x 5.8 cm AP x 6.3 cm LR Vol= 137.8 cc PSA DENSITY: 0.09 ng/ml/cc Markedly enlarged prostate gland is present. There is central transitional zone hypertrophy with thin peripheral zone. No areas of diminished signal on ADC mapping or increased signal on diffusion-weigh poppy imaging seen. Central transitional zone hypertrophy shows marked heterogeneity with small area of heterogeneous diminished signal intensity with obscured margins in the left apical segment measuring near 8 mm axial image 16. No increased signal on diffusion-weighted imaging. PI-RADS 3 lesion. Seminal vesicles symmetric and within normal limits. Urinary bladder poorly distended with mild wall thickening. No significant trabeculation. No concerning pelvic adenopathy. Sigmoid colonic diverticul a. Tiny amount of free fluid in the pelvis axial image 28 of uncertain etiology. Visualized osseous s tructures are intact. IMPRESSION: Markedly enlarged prostate consistent with BPH. A focal area of cancer not clearly identi fied. Highest Assessment Category: 3 MRI Stage: T1c N0 M0 based on review of pelvic images. False negative rates for MRI range from 5-20% depending on risk profile. Assessment Categories: 1 ? Very low (clinically significant cancer is highly unlikely to be present) 2 ? Low (clinically significant cancer is unlikely to be present) 3 ? Intermediate (the presence of clinically significant cancer is equivocal) 4 ? High (clinically significant cancer is likely to be present) 5 ? Very high (clinically significant cancer is highly likely to be present)
== END | disposition home or self-care (01) ==
LOC: RADMRIMAIN 07:39
PROVIDERS: ATTEND Urology
DX: C61 Malignant neoplasm of prostate (principal); N40.0 Benign prostatic hyperplasia without lower urinary tract symptoms
CPT/HCPCS: 72197; A9585

== ENCOUNTER → 2023-07-06 | Outpatient (CLI) | payer MEDICARE ==
--- NOTE | 2023-07-06 12:08 | MR ---
EXAMINATION TYPE: MR Prostate wo/w con DATE OF EXAM: 07/06/2023 9:56 AM COMPARISON: 12/10/2019, 08/02/2022. CLINICAL INDICATION:Male, 73 years old with history of R97.20 ELEVATED PSA; Elevated PSA. TECHNIQUE: Multi-planar, multi-sequence imaging of the pelvis is performed prior to and following the uncomplicated administration of bolus intravenous gadolinium. CONTRAST: 9 Gadavist Interpretive Criteria: PI-RADS v2.1 SERUM PSA: 8.4 on 2018 12.4 on 2022. SURGICAL PATHOLOGY: No data available. FINDINGS: Prostatic dimensions: 6.6 x 8.9 x 6.0 cm. Ellipsoid Volume:184.54 (PSA density=0.07 ng/mL/mL) CENTRAL GLAND (Central and Transition Zones/CZ+TZ): Multiple bilateral, heterogenous appearing hypertrophic stromal nodules, without suspicious lesion. M edian lobe hypertrophy with protrusion into the base of the bladder. (PI-RADS 2) PERIPHERAL ZONE (PZ): Thinning secondary to BPH of the central gland No evidence of masslike abnormality, or localized perf usional hypervascularity, to further suggest a focus of clinically significant prostate cancer. (PI-R ADS 2) SEMINAL VESICLES (SV): Symmetric and unremarkable. PERIPROSTATIC TISSUES: Unremarkable. LYMPH NODES: No enlarged pelvic lymph node. REMAINING PELVIS: Trabeculated bladder wall likely secondary to chronic bladder outlet obstruction. No abnormal free or organized intrapelvic fluid collection. No pathologic bowel dilation or mural thickening. No hernia visualized Left lower quadrant cystic structure measuring at least 12.4 x 10.0 cm as seen on prior CT imaging da ting back to at least 2019. OSSEOUS STRUCTURES: No suspicious osseous abnormality. IMPRESSION: 1. No specific features for high-risk prostate cancer. Maximum PI-RADS score: 2. 2. Substantial BPH, estimated gland volume 184.54 mL. 3. No suspicious osseous lesion. No lymphadenopathy. No evidence of prostate adenocarcinoma involving the periprostatic tissues. 4. Partially visualized large cystic structure within the abdomen which is felt to correlate with yasmine or CT 2019 and likely representing large dilated left renal collecting system.
== END | disposition home or self-care (01) ==
LOC: RADMRIMAIN 08:54
PROVIDERS: ATTEND Urology
DX: N40.0 Benign prostatic hyperplasia without lower urinary tract symptoms (principal); K31.89 Other diseases of stomach and duodenum; R97.20 Elevated prostate specific antigen [PSA]
CPT/HCPCS: 72197; A9585

== ENCOUNTER → 2024-02-23 | Outpatient (CLI) | payer MEDICARE ==
--- NOTE | 2024-02-23 13:49 | XR ---
EXAMINATION TYPE: XR chest 2V DATE OF EXAM: 02/23/2024 1:35 PM COMPARISON: 07/10/2018 CLINICAL INDICATION: Male, 73 years old with history of R05.3 cough, , TECHNIQUE: Frontal and lateral views FINDINGS: Heart normal size. Aorta and pulmonary vasculature within normal limits. No consolidation or pleural effusion. IMPRESSION: No acute cardiopulmonary process. [facility], , 02/23/2024 1:46 PM
== END ==
LOC: RADXRMAIN 13:20
PROVIDERS: ATTEND Family Medicine
DX: R05.3 Chronic cough (principal)
CPT/HCPCS: 71046

== ENCOUNTER → 2024-03-19 | Outpatient (CLI) | payer MEDICARE ==
--- NOTE | 2024-03-19 08:14 | US ---
EXAMINATION TYPE: US kidneys/renal and bladder DATE OF EXAM: 03/19/2024 COMPARISON: 09/16/[address] abdomen December 10, 2019 CLINICAL INDICATION: Male, 73 years old with history of N28.1 CYST OF KIDNEY; cyst on left kidney. Pt states his left kidney is nonfunctioning. TECHNIQUE: Grayscale imaging of the bilateral kidneys and urinary bladder: FINDINGS: EXAM MEASUREMENTS: Right Kidney: 13.0 x 5.6 x 7.0 cm Left Kidney: renal parenchyma not seen Right Kidney: multiple cystic areas. Largest measuring 4.8 x 4.2 x 3.2cm Left Kidney: renal parenchyma not seen. Large complex area seen measuring 25.2 x 23.6 x 12.2cm Bladder: appears wnl Bilateral Jets seen: only right jet seen Persistent multiple thin-walled cysts of varying size and shape scattered throughout the right kidney . Right kidney measures upper limits of normal in size. No obvious hydronephrosis. Large cysts in the left flank distort or occupying majority of the enlarged left kidney similar to prior making evaluat ion suboptimal. Bladder is distended with bulging prostate at the base. Distal right ureter jet is se en. IMPRESSION: Suboptimal study due to polycystic kidney disease. Likely nonfunctioning left kidney redemonstrated. No right-sided hydronephrosis. [facility], , 03/19/2024 8:11 AM
== END | disposition home or self-care (01) ==
LOC: RADUSWWP 07:17
PROVIDERS: ATTEND Family Medicine
DX: Q61.3 Polycystic kidney, unspecified (principal)
CPT/HCPCS: 76770